=== PATIENT | female | born 1980 | race Caucasian/White ===

== ENCOUNTER 2020-02-13 07:31 | Day surgery (SDC) | payer OTHER, SELFPAY ==
[~2020-02-13] VITALS: Ht 165.1 cm; Wt 63.5 kg
[2020-02-13] MEDS ORDERED: AMPH20TA5 PO (08:18)
[2020-02-13] MEDS ORDERED: LIDOCAINE VISCOUS 2% 20 ML UDC ONE (09:11)
[2020-02-13] MEDS ORDERED: LIDOCAINE 2% 100 MG/5 ML UJET TP ONE (09:11)
[2020-02-13] MEDS ORDERED: fentaNYL 0.05 MG/ML VIAL ONE (09:11)
[2020-02-13] MEDS ORDERED: MIDAZOLAM 2 MG/2 ML VIAL ONE ×2 (09:13→09:23)
[2020-02-13] MEDS ORDERED: METOCLOPRAMIDE 10 MG/2 ML INJ VIAL ONE (10:26)
[2020-02-13] MEDS ORDERED: fentaNYL 0.05 MG/ML VIAL IVP ONE (10:35)
[2020-02-13] MEDS ORDERED: MIDAZOLAM 2 MG/2 ML VIAL IVP ONE (10:35)
[2020-02-13] MEDS ORDERED: METOCLOPRAMIDE 10 MG/2 ML INJ VIAL IVP ONE (10:35)
== END 2020-02-13 12:00 | disposition home or self-care (01) ==
LOC: MDS 07:31 → MMU 07:32 → MDS 12:00
PROVIDERS: ATTEND Internal Medicine Gastroenterology
DX: K59.00 Constipation, unspecified (principal); K58.9 Irritable bowel syndrome, unspecified; K64.8 Other hemorrhoids; R14.0 Abdominal distension (gaseous); Z11.59 Encounter for screening for other viral diseases
CPT/HCPCS: 43239; 45380; 81025; J2250; J2765; J3010; U0003